=== PATIENT | male | born 1990 | race Two or more races ===

== ENCOUNTER 2019-04-18 23:46 | Emergency (ER) | payer SELFPAY ==
--- NOTE | 2019-04-19 00:33 | ER Document Report ---
ED General - General Chief Complaint: Unresponsive Stated Complaint: UNRESPONSIVE Time Seen by Provider: 04/19/19 00:22 Notes: Patient is a 29-year-old male that comes to the emergency department for chief complaint of overdose. Reportedly patient was at a convenience store playing slots and taking Percocets with his friends, he states he was taking "Percocet 30s", reportedly patient slumped over, friend called the EMS and ran. Police arrived first, found patient to be gasping and they gave him a total of 4 mg intranasal Versed. He also felt like they could not find his pulse so they began CPR but patient became aroused when they did so. EMS did not give any other interventions. Patient denies alcohol, denies other drugs, states that occasionally he takes recreational Percocets but he denies ever using IV drugs. He denies any daily medications or prescribed medications. He denies any locations of pain including pain to his chest wall at this time. He denies suicidal or homicidal ideations, states he was just trying to have a good time. - Related Data Allergies/Adverse Reactions: No Known Allergies Allergy (Unverified 04/19/19 00:08) Past Medical History - General Information source: Patient - Social History Smoking Status: Unknown if Ever Smoked Drug Abuse: Prescription drugs Lives with: Friend Family History: Reviewed & Not Pertinent Patient has suicidal ideation: No Patient has homicidal ideation: No Surgical Hx: Negative - Immunizations Immunizations up to date: Yes Hx Diphtheria, Pertussis, Tetanus Vaccination: Yes Review of Systems - Review of Systems Constitutional: See HPI EENT: No symptoms reported Cardiovascular: See HPI Respiratory: No symptoms reported Gastrointestinal: No symptoms reported Genitourinary: No symptoms reported Male Genitourinary: No symptoms reported Musculoskeletal: See HPI Skin: No symptoms reported Hematologic/Lymphatic: No symptoms reported Neurological/Psychological: See HPI Physical Exam - Vital signs Vitals: Resp 14 04/18/19 23:52 - Notes Notes: GENERAL: Drowsy, arousable with sternal rub only HEAD: Normocephalic, atraumatic. EYES: Pupils equal, round, and reactive to light. Extraocular movements intact. ENT: Oral mucosa moist, tongue midline. Oropharynx unremarkable. Airway patent. NECK: Full range of motion. Supple. Trachea midline. LUNGS: Clear to auscultation bilaterally, no wheezes, rales, or rhonchi. No respiratory distress. HEART: Regular rate and rhythm. No murmur ABDOMEN: Soft, non-tender. Non-distended. EXTREMITIES: Moves all 4 extremities spontaneously. No edema, normal radial and dorsalis pedis pulses bilaterally. No cyanosis. BACK: no cervical, thoracic, lumbar midline tenderness. No saddle anesthesia, normal distal neurovascular exam. Moves all extremities in full range of motion. NEUROLOGICAL: Drowsy, oriented to person and place but not to events. Cranial nerves intact. PSYCH: Cooperative SKIN: Warm, dry, normal turgor. No rashes or lesions noted. Course - Re-evaluation Re-evalutation: 04/19/19 02:00 Patient was reevaluated because I noticed that he was starting to have desaturations on the monitor, patient noted to start becoming apneic, respiratory rate is down to 5, he is difficult to arouse with sternal rub, he started desaturating with oxygen down into the mid 80s. With a hard sternal rub patient did arouse slightly, looked at me, started breathing again, afterwards patient was given 1 mg of IV Narcan with excellent results. Normal respirations achieved, patient is conversational now. I did discuss with Dr. Zuñiga. He does not recommend Narcan drip at this time, will continue to monitor. 04/19/19 03:50 Patient is starting to get apneic again with respirations of 5 or less. Oxygen saturation dipping down to 91, not as bad as before but patient is still worsening despite being here for 4 hours total. Initiating Narcan drip, getting blood gas, patient was discussed with Dr. Son. Patient apparently took extended release medications and will likely require admission to the hospitalist. 04/19/19 06:18 I have been back in the patient's room 3 times. Patient back and forth about agreeing to admission. Patient has been started on low-dose Narcan drip, he is sitting on the chair at bedside, he is conversational and alert but he does also fall back asleep if I leave him alone. Twice I talked patient into staying because of the dangers of leaving although he states repeatedly that he wants to leave. Patient initially in agreement after second discussion. I was called back again to the room, patient states that he has decided to leave, he states that he understands the risk including respiratory arrest, brain injury, and , patient states that regardless of this he was choosing to leave. Patient again states that he was taking the medications recreationally and he has no intention of suicide or self-harm. Finally patient was agreeable to come to compromise. Patient agrees to spend the next hour off of the Narcan drip if he is awake, alert, has no apnea, hypoxia, or concerning symptoms he will then be discharged. If he does have drowsiness, hypoxia, or apnea he will be placed back on the and admitted to the hospital. Patient states satisfaction with this plan. 04/19/19 07:24 Reevaluated patient twice more. He actually is alert, did not fall asleep, certainly did not have any apnea or hypoxia. Patient appears to have finally cleared the opiates and is doing very well. Patient discharged after strong recommendations against the dangers and lethal consequences of recreational drugs. Patient states understanding. Stable at time of discharge. Discussed with Dr. Pillai. - Vital Signs Vital signs: Temp Pulse Resp BP Pulse Ox 97.7 F 19 124/77 97 04/19/19 00:00 04/19/19 07:00 04/19/19 06:42 04/19/19 07:00 - Laboratory Result Diagrams: 04/19/19 00:45 04/19/19 00:45 Laboratory results interpreted by me: 04/19/19 04/19/19 04/19/19 00:45 00:45 00:45 WBC 18.6 H Lymph % (Auto) 5.4 L Absolute Neuts (auto) 16.4 H Seg Neutrophils % 87.8 H Carbonic Acid ABG pCO2 ABG pO2 ABG HCO3 ABG Total CO2 ABG O2 Saturation Potassium 3.5 L AST 152 H Urine Glucose (UA) Urine Ketones Urine Urobilinogen Acetaminophen < 10 L 04/19/19 04/19/19 04:20 04:25 WBC Lymph % (Auto) Absolute Neuts (auto) Seg Neutrophils % Carbonic Acid 1.56 H ABG pCO2 51.7 H ABG pO2 61.8 L ABG HCO3 28.6 H ABG Total CO2 30.1 H ABG O2 Saturation 90.5 L Potassium AST Urine Glucose (UA) 50 H Urine Ketones TRACE H Urine Urobilinogen 4.0 H Acetaminophen Discharge - Discharge Clinical Impression: Opiate overdose Qualifiers: Encounter type: initial encounter Injury intent: accidental or unintentional Qualified Code(s): T40.601A - Poisoning by unspecified narcotics, accidental (unintentional), initial encounter Condition: Stable Disposition: HOME, SELF-CARE Additional Instructions: Do not take any recreational/illegal substance, these are extremely dangerous and eventually will lead to significant consequences and even if you continue to use them. Follow-up with primary care. Return for any concerning symptoms including difficulty breathing, vomiting, fever, or if something is not right. Forms: Return to Work
[2019-04-19 00:54] LABS: ABSOLUTE BASOPHILS # (AUTO) 0.1 10^3/uL (0.0-0.2); ABSOLUTE EOSINOPHILS # (AUTO) 0.1 10^3/uL (0.0-0.6); ABSOLUTE MONOCYTES (AUTO) 1.1 10^3/uL (0.1-1.4); ABSOLUTE NEUT (AUTO) 16.4 10^3/uL (1.7-8.2); BASOPHILS % (AUTO) 0.4 % (0-2); EOSINOPHILS % (AUTO) 0.6 % (0-6); HEMATOCRIT 46.6 % (37.9-51.0); HEMOGLOBIN 15.6 g/dL (13.5-17.0); LYMPHOCYTES % (AUTO) 5.4 % (13-45); MEAN CORPUSCULAR HEMOGLOBIN 28.2 pg (27.0-33.4); MEAN CORPUSCULAR HGB CONC 33.4 g/dL (32.0-36.0); MEAN CORPUSCULAR VOLUME 84 fl (80-97); MONOCYTES % (AUTO) 5.8 % (3-13); PLATELET COUNT 298 10^3/uL (150-450); RED BLOOD COUNT 5.52 10^6/uL (4.35-5.55); RED CELL DISTRIBUTION WIDTH 13.8 % (11.5-14.0); SEGMENTED NEUTROPHILS % (AUTO) 87.8 % (42-78); TOTAL CELLS COUNTED % (AUTO) 100 %; WHITE BLOOD COUNT 18.6 10^3/uL (4.0-10.5)
[2019-04-19 01:14] LABS: ALBUMIN 4.4 g/dL (3.5-5.0); ALKALINE PHOSPHATASE 103 U/L (38-126); ANION GAP 9 (5-19); ASPARTATE AMINO TRANSFERASE 152 U/L (17-59); BILIRUBIN,DIRECT 0.2 mg/dL (0.0-0.4); BILIRUBIN,TOTAL 0.6 mg/dL (0.2-1.3); BLOOD UREA NITROGEN 13 mg/dL (7-20); CALCIUM 8.9 mg/dL (8.4-10.2); CARBON DIOXIDE 30 mmol/L (22-30); CHLORIDE 99 mmol/L (98-107); GLUCOSE 104 mg/dL (75-110); POTASSIUM 3.5 mmol/L (3.6-5.0); TOTAL PROTEIN 7.2 g/dL (6.3-8.2)
[2019-04-19 01:16] LABS: ALCOHOL < 10 mg/dL (NONE DETECTED)
--- NOTE | 2019-04-19 01:29 | RADIOLOGY REPORT (SQ) ---
EXAM DESCRIPTION: XR CHEST 2 VIEWS COMPLETED DATE/TME: 04/19/2019 00:30 CLINICAL HISTORY: 29 years Male, had CPR performed on the chest COMPARISON: None. NUMBER OF VIEWS/TECHNIQUE: 2, Frontal, Lateral FINDINGS: Adequate lung volume, clear parenchyma, normal cardiac silhouette, and intact bony thorax. IMPRESSION: No acute cardiopulmonary findings.
[2019-04-19] MEDS ORDERED: NALOXONE HCL INJ 2 MG/2 ML DISP.SYRIN IV ONE (01:51)
[2019-04-19] MEDS ORDERED: NORMAL SALINE 500 ML with NALOXONE HCL 2 MG IV PRN ×2 (03:48)
[2019-04-19] MEDS ORDERED: NALOXONE HCL INJ 2 MG/2 ML DISP.SYRIN ONE (04:28)
[2019-04-19 04:33] LABS: ARTERIAL BLOOD BASE EXCESS 1.9 mmol/L; ARTERIAL BLOOD H2CO3 1.56 mmol/L (1.05-1.35); ARTERIAL BLOOD HCO3 28.6 mmol/L (20-24); ARTERIAL BLOOD O2 SATURATION 90.5 % (94-98); ARTERIAL BLOOD PCO2 51.7 mmHg (35-45); ARTERIAL BLOOD PH 7.36 (7.35-7.45); ARTERIAL BLOOD PO2 61.8 mmHg (80-100); ARTERIAL BLOOD TOTAL CO2 30.1 mmol/L (23-27)
[2019-04-19 04:34] LABS: ARTERIAL BLOOD FIO2 ROOM AIR
[2019-04-19 04:39] LABS: APPEARANCE,URINE CLEAR; BILIRUBIN,URINE NEGATIVE (NEGATIVE); COLOR,URINE YELLOW; GLUCOSE, URINE 50 mg/dL (NEGATIVE); KETONES,URINE TRACE mg/dL (NEGATIVE); LEUKOCYTE ESTERASE,URINE NEGATIVE (NEGATIVE); NITRITE,URINE NEGATIVE (NEGATIVE); PROTEIN,URINE NEGATIVE (NEGATIVE); URINE SPECIFIC GRAVITY 1.013
[2019-04-19 04:50] LABS: URINE AMPHETAMINES SCREEN NEGATIVE; URINE BARBITURATES SCREEN NEGATIVE; URINE BENZODIAZEPINES SCREEN NEGATIVE; URINE COCAINE SCREEN UNCONFIRMED POSITIVE; URINE MARIJUANA (THC) SCREEN UNCONFIRMED POSITIVE; URINE METHADONE SCREEN NEGATIVE; URINE PHENCYCLIDINE SCREEN NEGATIVE
--- NOTE | 2019-04-19 07:25 | EKG REPORT ---
SEVERITY:- BORDERLINE ECG - SINUS RHYTHM BORDERLINE PROLONGED QT INTERVAL : Confirmed by: Pierre Samson 19-Apr-2019 07:24:45
[2019-04-19 07:44] VITALS: BP 113/63
== END 2019-04-19 07:46 | disposition home or self-care (01) ==
LOC: ER 23:46
DX: T40.601A Poisoning by unspecified narcotics, accidental (unintentional), initial encounter (principal)
CPT/HCPCS: 93005; 96376; 99284; 96365; 96366; 36415; 80307 ×3; 82803; 85025; 80053; 81001; 71046; 93010; J2310; J7040